=== PATIENT | female | born 1985 | race Caucasian/White ===

== ENCOUNTER → 2018-01-19 | Outpatient (CLI) | payer SELFPAY ==
[~2018-01-19] MED LIST: ALB17R INH; AMO500 PO; CYC10 PO; DM H PO; LEV125 PO; LOR5/325 PO; PROC5L PO
--- NOTE | 2018-01-19 11:08 | RADIOLOGY IMAGING REPORT ---
FACILITY: [facility] - [place] PATIENT NAME: Gurwinder Neely : 1985 MR: [id number] V: [id number] EXAM DATE: ORDERING PHYSICIAN: NAREN BEAN TECHNOLOGIST: Location: [facility] - [place] Patient: Gurwinder Neely : 1985 Visit/Account:[id number] Date of Sevice: 01/19/2018 FOOT 2 VIEW LEFT Indication: Fall with pain on the top and lateral aspect of the foot. Comparison: None Available Findings: 2 views of the left foot were obtained. Linear cortical lucency along the proximal shaft of the proximal fifth phalanx, concerning for fractu re. No additional potential fractures identified. There is no focal soft tissue abnormality. No evidence of radiopaque foreign body. IMPRESSION: 1. Lucency along the proximal shaft of the proximal fifth phalanx, concerning for fracture. Recomme nd correlation for point tenderness. Report Dictated By: Brandin Perkins MD at 01/19/2018 11:03 AM Report E-Signed By: Brandin Perkins MD at 01/19/2018 11:04 AM WSN:[email or web address]
== END ==
LOC: RAD 10:14
PROVIDERS: ATTEND Nurse Practitioner Family
DX: S92.511A Displaced fracture of proximal phalanx of right lesser toe(s), initial encounter for closed fracture (principal)

== ENCOUNTER 2018-10-30 14:38 | Emergency (ER) | payer OTHER ==
--- NOTE | 2018-10-30 14:53 | ER Report ---
History and Physical Time Seen By MD: 14:44 Hx. of Stated Complaint: PATIENT WAS AT WORK AND HAD A SHELF HIT HER HEAD. UNSURE OF LOC. NO NECK PAIN. HPI/ROS CHIEF COMPLAINT: Head injury HISTORY OF PRESENT ILLNESS: This is a 32-year-old female who presents to the emergency for head injury. 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 She is not sure if she lost consciousness, she states that after several minutes per her coworker asked her about 5 times if she was okay, she does not recall this. She states that she's had significant pain, felt "fuzzy", and somewhat dizzy. She went home around 1:00 after her shift, took some ibuprofen, the pain persisted she became very concerned, decided come in for evaluation. Patient is tearful she states that the left side of her head is very painful still. No nausea or vomiting. No diarrhea. No other visual disturbances. No fevers or chills. No chest pain or shortness of breath. REVIEW OF SYSTEMS: Constitutional: No fever, no chills. Eyes: No discharge. ENT: No sore throat. Cardiovascular: No chest pain, no palpitations. Respiratory: No cough, no shortness of breath. Gastrointestinal: No abdominal pain, no vomiting. Genitourinary: No hematuria. Musculoskeletal: As above. Skin: No rashes. Neurological: As above. Allergies: Coded Allergies: No Known Drug Allergies (Verified , 10/30/11) Home Meds Reported Medications Levothyroxine Sodium (LEVOTHYROXINE SODIUM) 0.125 Mg Tab, 0.125 MG PO QDAY, TAB 06/08/13 Past Medical/Surgical History The patient has no significant past medical or surgical history. Hx Smoking: No Smoking Status: Never Smoker Exposure to Second Hand Smoke?: Yes Hx Substance Use Disorder: No Hx Alcohol Use: No Constitutional Vital Sign - Last 24 Hours 10/30/18 10/30/18 14:44 16:50 Temp 98.2 Pulse 83 85 Resp 18 16 B/P (MAP) 141/100 132/82 (99) Pulse Ox 100 92 O2 Delivery Room Air Room Air Physical Exam General Appearance: The patient is alert, has no immediate need for airway protection and no signs of toxicity. Eyes: Pupils equal and round no pallor or injection. EOMs intact. ENT, Mouth: Mucous membranes are moist. No hemotympanum. TMs are pearly johnson, landmarks noted, no injection or erythema. Respiratory: There are no retractions, lungs are clear to auscultation. Cardiovascular: Regular rate and rhythm. No murmurs, clicks or rubs. Gastrointestinal: Abdomen is soft and non tender, no masses, bowel sounds normal. Neurological: Alert and oriented 4. Moving all extremities. Following all commands. No focal neuro deficits. Skin: Warm and dry, no rashes. Musculoskeletal: Neck is supple non tender. Tenderness to the left parietal region, no contusions, lacerations or obvious skull fractures or crepitus. Extremities are nontender, nonswollen and have full range of motion. DIFFERENTIAL DIAGNOSIS: After history and physical exam differential diagnosis was considered for concussion, skull fracture, intracranial abnormality. Medical Decision Making EKG/Imaging Imaging PATIENT NAME: Gurwinder Neely : 1985 MR: [id number] V: [id number] EXAM DATE: ORDERING PHYSICIAN: JULIAN FLORES TECHNOLOGIST: Location: [facility] - [place] Patient: Gurwinder Neely : 1985 Visit/Account:[id number] Date of Sevice: 10/30/2018 CT Head without contrast Indication: Head trauma. Comparison: None available Technique: Axial CT images were obtained through the brain from the skull base to the vertex without administration of IV contrast. Reformatted coronal and sagittal images were also obtained. One of the following dose optimization techniques was utilized in the performance of this exam: automated exposure control; adjustment of the mA and/or kV according to the patient's size; or use of an iterative reconstruction technique. Specific details can be referenced in the facility's radiology CT exam operational policy. Findings: No evidence of mass, mass effect, or midline shift. No acute intracranial hemorrhage or acute territorial infarction. No extra-axial fluid collection or hydrocephalus. No abnormal density. Johnson/white matter differentiation appears normal. Bony structures show no fractures or lesions. Mild leftward deviation nasal septum. The visualized paranasal sinuses and mastoid air cells are clear. IMPRESSION: 1. No acute intracranial abnormality. No skull fracture. Report Dictated By: Amaury Quezada at 10/30/2018 3:38 PM Report E-Signed By: Amaury Damien at 10/30/2018 3:44 PM WSN:[id number] ED Course/Re-evaluation ED Course The patient was admitted to room. A history and physical were obtained. Differential diagnoses were considered. A CT of the head was negative for any acute intracranial abnormalities. I did review the results with the patient. I did tell her this is likely a concussion, we did discuss symptoms of concussion and what to monitor for, I did recommend the next couple of days off of work for brain rest. Patient expressed understanding, was agreeable with this plan of care and discharged. She was also instructed follow-up with her primary care provider or return to the ER for any other concerns. Decision to Disposition Date: Oct 30, 2018 Decision to Disposition Time: 16:32 Depart Departure Latest Vital Signs Vital Signs Date Time Temp Pulse Resp B/P (MAP) Pulse Ox O2 Delivery O2 Flow Rate FiO2 10/30/18 16:50 85 16 132/82 (99) 92 Room Air 10/30/18 14:44 98.2 Impression: Primary Impression: Concussion Condition: Improved Disposition: HOME OR SELF-CARE Departure Forms: ER Transition Record, Medications Reconciliation, Off Work/School Form, School or Work Release?: Work Number of days to be released: 2 Patient Portal Information Patient Instructions: Concussion (ED) Additional Instructions: You have a concussion, no work for 2 days. Minimize brain stimulation, no computers, stones or tablets for at least 24 hours. You can take ibuprofen and Tylenol as needed. Drink plenty of water. Get plenty of rest. Should you have persistent vomiting return to the emergency department immediately. Follow-up with your primary care provider within one week for reevaluation. Problem Qualifiers Primary Impression: Concussion Encounter type: initial encounter Loss of consciousness presence/duration: with LOC of unspecified duration Qualified Codes: S06.0X9A - Concussion with loss of consciousness of unspecified duration, initial encounter JULIAN FLORESP-PAULINA Oct 30, 2018 14:53
--- NOTE | 2018-10-30 15:53 | RADIOLOGY IMAGING REPORT ---
[place] [facility] [place] Gurwinder Neely : 1985 MR: [id number] V: [id number] EXAM DATE: ORDERING PHYSICIAN: JULIAN FLORES TECHNOLOGIST: Location: [facility] - [place] Patient: Gurwinder Neely : 1985 Visit/Account:[id number] Date of Sevice: 10/30/2018 CT Head without contrast Indication: Head trauma. Comparison: None available Technique: Axial CT images were obtained through the brain from the skull base to the vertex without administration of IV contrast. Reformatted coronal and sagittal images were also obtained. One of the following dose optimization techniques was utilized in the performance of this exam: autom ated exposure control; adjustment of the mA and/or kV according to the patient's size; or use of an i terative reconstruction technique. Specific details can be referenced in the facility's radiology CT exam operational policy. Findings: No evidence of mass, mass effect, or midline shift. No acute intracranial hemorrhage or acute territorial infarction. No extra-axial fluid collection or hydrocephalus. No abnormal density. Johnson/white matter differentiat ion appears normal. Bony structures show no fractures or lesions. Mild leftward deviation nasal septum. The visualized paranasal sinuses and mastoid air cells are clear. IMPRESSION: 1. No acute intracranial abnormality. No skull fracture. Report Dictated By: Amaury Quezada at 10/30/2018 3:38 PM Report E-Signed By: Amaury Quezada at 10/30/2018 3:44 PM WSN:[id number]
[2018-10-30 16:50] VITALS: BP 132/82
== END 2018-10-30 16:55 | disposition home or self-care (01) ==
LOC: ER 14:47
DX: S06.0X9A Concussion with loss of consciousness of unspecified duration, initial encounter (principal); W20.8XXA Other cause of strike by thrown, projected or falling object, initial encounter; Y93.89 Activity, other specified; Y99.0 Civilian activity done for income or pay
CPT/HCPCS: 70450; 99284